=== PATIENT | male | born 1980 | race Caucasian/White ===

== ENCOUNTER 2019-08-14 19:34 | Emergency (ER) | payer OTHER ==
[~2019-08-14] VITALS: Ht 185.4 cm; Wt 79.4 kg
[2019-08-14 19:35] VITALS: BP 119/77
--- NOTE | 2019-08-14 19:35 | NUR ---
ED Nurse Note: Pt brought into ED by JOB Castillo for c/o new onset seizure. Pt states he was on facetime with his friends when he started to have seizure lasting approx 10 seconds, witnessed by friends on facetime. Pt is aaox4, breathing is normal and unlabored, no cardiac distress. Pt did bite his tongue, dried blood on tongue noted. No incontinence. Pt does not have hx of seizures. Pt reports headache and nausea. No trauma to head noted. Seizure precuations in place. Pt connected to diagnostic cardiac sonographer. IV line established and blood specimen sent to lab. Will continue to monitor.
[2019-08-14] MEDS ORDERED: LORazepam Inj 2mg/ml 1ml IV ONE (19:45)
--- NOTE | 2019-08-14 19:52 | Emergency Room Report ---
History of Present Illness General Chief Complaint: Seizure Source: Patient Present Illness HPI Patient presents with reports of possible seizure activity Patient reports that he was in his room meeting with several people having dinner He felt acute chill and had a lapse of consciousness for about 10 seconds Patient was noted to have shaking activity by people who were on the call Currently denies any headache denies any confusion denies any chest pain denies any recent fevers or neck pain denies any photophobia Allergies: Coded Allergies: No Known Allergies (Unverified , 08/14/19) COVID-19 Screening Contact w/high risk pt: No Recent Travel to affected area: No Experienced COVID-19 symptoms?: No Patient History Past Medical History: see triage record Reviewed Nursing Documentation: PMH: Agreed; PSxH: Agreed Nursing Documentation-PMH Past Medical History: No History, Except For History Of Psychiatric Problem: Yes - ANXIETY Review of Systems All Other Systems: negative except mentioned in HPI Physical Exam Vital Signs Date Time Temp Pulse Resp B/P (MAP) Pulse Ox O2 Delivery O2 Flow Rate FiO2 08/14/19 19:30 96.6 77 18 119/77 (91) 97 Room Air Sp02 EP Interpretation: reviewed, normal General Appearance: well appearing, no apparent distress Head: normocephalic, atraumatic Eyes: bilateral eye PERRL, bilateral eye EOMI ENT: hearing grossly normal, normal pharynx, TMs + canals normal, uvula midline Neck: full range of motion, supple, no meningismus, no bony tend Respiratory: lungs clear, normal breath sounds, no rhonchi, no respiratory distress, no retraction, no accessory muscle use Cardiovascular #1: normal peripheral pulses, regular rate, rhythm, no edema, no gallop, no JVD, no murmur Gastrointestinal: normal bowel sounds, non tender, soft, no mass, no organomegaly, non-distended, no guarding, no hernia, no pulsatile mass, no rebound Genitourinary: no CVA tenderness Musculoskeletal: normal inspection Neurologic: motor strength/tone normal, lead carpenter III-XII nml as tested, oriented x3 , sensory intact, responsive Psychiatric: mood/affect normal Skin: no rash Lymphatic: normal inspection, no adenopathy Medical Decision Making Diagnostic Impression: Primary Impression: Seizure ER Course Multiple differentials including but not limited to neurological, electrolyte, infectious process entertained Given that this is the first onset patient had blood work and imaging obtained All within normal limits patient continues to rest comfortably Remains neurologically intact Suspicion for any other emergent process is low and the patient is stable for initial conservative outpatient trial Labs Test 08/14/19 19:55 White Blood Count 9.1 K/UL (4.8-10.8) Red Blood Count 4.94 M/UL (4.70-6.10) Hemoglobin 14.2 G/DL (14.2-18.0) Hematocrit 42.7 % (42.0-52.0) Mean Corpuscular Volume 87 FL (80-99) Mean Corpuscular Hemoglobin 28.7 PG (27.0-31.0) Mean Corpuscular Hemoglobin Concent 33.1 G/DL (32.0-36.0) Red Cell Distribution Width 12.4 % (11.6-14.8) Platelet Count 280 K/UL (150-450) Mean Platelet Volume 6.8 FL (6.5-10.1) Neutrophils (%) (Auto) 84.9 % (45.0-75.0) Lymphocytes (%) (Auto) 7.3 % (20.0-45.0) Monocytes (%) (Auto) 6.2 % (1.0-10.0) Eosinophils (%) (Auto) 0.6 % (0.0-3.0) Basophils (%) (Auto) 1.0 % (0.0-2.0) Sodium Level 136 MMOL/L (136-145) Potassium Level 3.6 MMOL/L (3.5-5.1) Chloride Level 99 MMOL/L (98-107) Carbon Dioxide Level 27 MMOL/L (21-32) Anion Gap 10 mmol/L (5-15) Blood Urea Nitrogen 17 mg/dL (7-18) Creatinine 0.9 MG/DL (0.55-1.30) Estimat Glomerular Filtration Rate > 60 mL/min (>60) Glucose Level 146 MG/DL (74-106) Calcium Level 9.2 MG/DL (8.5-10.1) Total Bilirubin 0.3 MG/DL (0.2-1.0) Aspartate Amino Transf (AST/SGOT) 27 U/L (15-37) Alanine Aminotransferase (ALT/SGPT) 31 U/L (12-78) Alkaline Phosphatase 47 U/L (46-116) Total Protein 7.5 G/DL (6.4-8.2) Albumin 4.6 G/DL (3.4-5.0) Globulin 2.9 g/dL Albumin/Globulin Ratio 1.6 (1.0-2.7) CT/MRI/US Diagnostic Results CT/MRI/US Diagnostic Results : Impression CT headCT HEAD Without Contrast: No acute intracranial process. Last Vital Signs Date Time Temp Pulse Resp B/P (MAP) Pulse Ox O2 Delivery O2 Flow Rate FiO2 08/14/19 19:30 96.6 77 18 119/77 (91) 97 Room Air Status: improved Disposition: HOME, SELF-CARE Condition: Improved Referrals: NOT CHOSEN IPA/MD,REFERRING (PCP) Additional Instructions: Patient is provided with the discharge instructions notified to follow up with primary doctor in the next 2-3 days otherwise return to the er with any worsening symptoms. Please note that this report is being documented using DRAGON technology. This can lead to erroneous entry secondary to incorrect interpretation by the dictating instrument. Austin Maldonado DO Aug 14, 2019 19:51
--- NOTE | 2019-08-14 19:54 | NUR ---
ED Nurse Note: Pt taken to CT.
--- NOTE | 2019-08-14 20:06 | Diagnostic Imaging Report ---
Indications: Seizure Technique: Spiral acquisitions obtained through the brain. Angled axial and coronal 5 x 5 mm slices were reconstructed. Total dose length product 1025 mGycm. CTDI vol(s) 53 mGy. Dose reduction achieved using automated exposure control Comparison: None. Findings: Normal size ventricles and extra axial CSF spaces. No acute intracranial hemorrhage or edema. No mass effect nor midline shift dodge-white differentiation is normal. The calvarium is intact. The visualized orbits and sinuses are unremarkable. The mastoids are clear. Impression: Negative This agrees with the preliminary interpretation provided overnight by [facility]. The CT scanner at [facility] is accredited by the [employer] and the scans are performed using protocols designed to limit radiation exposure to as low as reasonably achievable to attain images of sufficient resolution adequate for diagnostic evaluation.
[2019-08-14 20:24] LABS: EOSINOPHILS % (AUTO) 0.6 % (0.0-3.0); HEMATOCRIT 42.7 % (42.0-52.0); HEMOGLOBIN 14.2 G/DL (14.2-18.0); LYMPHOCYTES % (AUTO) 7.3 % (20.0-45.0); MEAN CORPUSCULAR VOLUME 87 FL (80-99); MONOCYTES % (AUTO) 6.2 % (1.0-10.0); NEUTROPHILS % (AUTO) 84.9 % (45.0-75.0); PLATELET COUNT 280 K/UL (150-450); RED BLOOD COUNT 4.94 M/UL (4.70-6.10); RED CELL DISTRIBUTION WIDTH 12.4 % (11.6-14.8); WHITE BLOOD COUNT 9.1 K/UL (4.8-10.8)
[2019-08-14 20:29] LABS: ANION GAP 10 mmol/L (5-15); BLOOD UREA NITROGEN 17 mg/dL (7-18); CALCIUM 9.2 MG/DL (8.5-10.1); CARBON DIOXIDE 27 MMOL/L (21-32); CHLORIDE 99 MMOL/L (98-107); CREATININE 0.9 MG/DL (0.55-1.30); POTASSIUM 3.6 MMOL/L (3.5-5.1); SODIUM 136 MMOL/L (136-145)
[2019-08-14 20:34] LABS: ALANINE AMINOTRANSFERASE 31 U/L (12-78); ALBUMIN 4.6 G/DL (3.4-5.0); ALBUMIN/GLOBULIN RATIO 1.6 (1.0-2.7); ALKALINE PHOSPHATASE 47 U/L (46-116); ASPARTATE AMINO TRANSFERASE 27 U/L (15-37); BILIRUBIN,TOTAL 0.3 MG/DL (0.2-1.0)
--- NOTE | 2019-08-14 20:45 | NUR ---
ED Nurse Note: Pt states he is feeling better and no longer has a headache or feels nauseous.
[2019-08-14 20:50] VITALS: BP 125/85
--- NOTE | 2019-08-14 20:50 | NUR ---
ER DISCHARGE NOTE: Patient is cleared to be discharged per ERMD, pt is aox4, on room air, with stable vital signs. pt was given dc and prescription instructions, pt was able to verbalize understanding, pt id band and iv site removed without complications. pt is able to ambulate with steady gait. pt took all belongings.
== END 2019-08-14 20:50 | disposition home or self-care (01) ==
LOC: EDBD 19:34 → EMR 19:44
DX: G40.909 Epilepsy, unspecified, not intractable, without status epilepticus (principal); F41.9 Anxiety disorder, unspecified
CPT/HCPCS: 36415; 70450; 80053; 85025; 93005; 96361; 96374; 99284; J7030